=== PATIENT | male | born 1965 | race Caucasian/White ===

== ENCOUNTER 2023-01-03 18:16 | Emergency (ER) | payer BC | END 2023-01-03 18:45 | disposition home or self-care (01) | LOC: KA.ED 18:16 | DX: K62.5 Hemorrhage of anus and rectum (principal) | CPT/HCPCS: 12001; 99283 ==

== ENCOUNTER 2023-11-01 19:33 | Inpatient (IN) | payer BC ==
[2023-11-01] MEDS: Sodium Chloride 0.9% 10 ML Syringe FLUSH PRN (20:24)
[2023-11-01] MEDS: Lactated Ringers 1,000 ML IV ONE ×2 (20:28→21:44)
[2023-11-01 20:31] LABS: BASOPHILS ABSOLUTE AUTO 0.01 10^3/uL (0.00-0.10); BASOPHILS PERCENT AUTO 0.1 % (0.0-1.0); HEMATOCRIT 44.7 % (40.0-52.0); HEMOGLOBIN 15.1 g/dL (13.0-17.0); IMMATURE GRAN ABSOLUTE AUTO 0.03 10^3/uL (0.00-0.50); IMMATURE GRAN PERCENT AUTO 0.4 % (0.0-5.0); LYMPHOCYTES ABSOLUTE AUTO 0.71 10^3/uL (1.00-4.00); LYMPHOCYTES PERCENT AUTO 8.8 % (20.0-40.0); MEAN CORPUSCULAR HEMOGLOBIN 29.6 pg (27.0-31.0); MEAN CORPUSCULAR HGB CONC 33.8 g/dL (32.0-36.0); MEAN CORPUSCULAR VOLUME 87.6 fL (82.0-92.0); MEAN PLATELET VOLUME 10.7 fL (7.4-10.4); MONOCYTES PERCENT AUTO 7.5 % (2.0-8.0); NEUTROPHILS ABSOLUTE AUTO 6.69 10^3/uL (2.50-7.00); NEUTROPHILS PERCENT AUTO 83.2 % (50.0-70.0); PLATELET COUNT,PLT 216 10^3/uL (150-400); RED CELL DISTRIBUTION WIDTH 12.2 % (11.5-14.5); WHITE BLOOD CELL COUNT,WBC 8.04 10^3/uL (5.00-10.00)
[2023-11-01] MEDS: Ondansetron 4 MG/2 ML SDV IVPUSH ONE (20:32)
[2023-11-01] MEDS: Acetaminophen 500 MG Tab PO ONE (20:45)
[2023-11-01 20:48] LABS: ALANINE AMINOTRANSFERASE,ALT 34 U/L (14-63); ALBUMIN 4.05 g/dL (3.40-5.00); ALKALINE PHOSPHATASE 50 U/L (46-116); ANION GAP 16.9 mmol/L (5-15); ASPARTATE AMNIOTRANSFERASE,AST 22 U/L (15-37); BILIRUBIN TOTAL 0.8 mg/dL (0.2-1.0); BLOOD UREA NITROGEN,BUN 23 mg/dL (7-18); CHLORIDE,CL 97 mmol/L (98-107); CREATININE 1.47 mg/dL (0.51-1.17); ESTIMATED GFR 56 mL/min (>=60); GLUCOSE RANDOM 134 mg/dL (70-140); POTASSIUM,K 3.9 mmol/L (3.5-5.1); PROTEIN TOTAL,TP 7.5 g/dL (6.4-8.2); SODIUM,NA 136 mmol/L (136-145)
[2023-11-01] MEDS: methylPREDNISolone Sodium Succinate 125 MG/2 ML SDV IVPUSH ONE (20:51)
[2023-11-01 20:59] LABS: CORONAVIRUS COVID-19 NAA NEGATIVE (NEGATIVE); INFLUENZA A NAA POSITIVE (NEGATIVE); INFLUENZA B NAA NEGATIVE (NEGATIVE); RESPIRATORY SYNCYTIAL VIR NAA NEGATIVE (NEGATIVE)
[2023-11-01] MEDS: Cetirizine 10 MG Tab PO ONE (20:59)
[2023-11-01] MEDS: Famotidine 20 MG/2 ML SDV IVPUSH ONE (21:02)
[2023-11-01] MEDS: Sodium Chloride 0.9% 100 ML IV SCH (21:46)
[2023-11-01] MEDS: Iopamidol 755 Mg/ML 100 ML Bottle IV ONE (21:46)
[2023-11-01] MEDS: Oseltamivir 75 MG Cap PO ONE (22:09)
[2023-11-01] MEDS: Acetaminophen 325 MG Tab PO ONE (23:15)
[2023-11-01] MEDS ORDERED: Temazepam 15 MG Cap PO PRN (23:21)
[2023-11-01] MEDS ORDERED: Magnesium Hydroxide 400 MG/5 ML Susp 30 ML Cup PO PRN (23:21)
[2023-11-01] MEDS: Albuterol/Ipratropium 3.0-0.5 MG/3 ML Neb Soln NEB PRN (23:59)
[2023-11-02] MEDS ORDERED: Ondansetron 4 MG/2 ML SDV IV PRN
[2023-11-02] MEDS: Sodium Chloride 0.9% 1,000 ML IV SCH (00:03)
[2023-11-02] MEDS: Pantoprazole 40 MG in Sodium Chloride 0.9% 100 ML IV ONE (00:04)
[2023-11-02 07:12] LABS: HEMATOCRIT 41.6 % (40.0-52.0); MEAN CORPUSCULAR HGB CONC 33.7 g/dL (32.0-36.0); MEAN CORPUSCULAR VOLUME 89.3 fL (82.0-92.0); MEAN PLATELET VOLUME 10.6 fL (7.4-10.4); PLATELET COUNT,PLT 181 10^3/uL (150-400); RED BLOOD CELL COUNT 4.66 10^6/uL (4.50-6.00); RED CELL DISTRIBUTION WIDTH 12.4 % (11.5-14.5); WHITE BLOOD CELL COUNT,WBC 7.31 10^3/uL (5.00-10.00)
[2023-11-02 07:33] LABS: ANION GAP 13.7 mmol/L (5-15); CALCIUM 8.5 mg/dL (8.7-10.3); CARBON DIOXIDE,CO2 25.1 mmol/L (21.0-32.0); CREATININE 1.13 mg/dL (0.51-1.17); EST CRCL DRUG DOSING (CG) 80.12 mL/min; POTASSIUM,K 3.8 mmol/L (3.5-5.1)
[2023-11-02] MEDS: predniSONE 20 MG Tab PO SCH (08:24)
[2023-11-02] MEDS: Oseltamivir 75 MG Cap PO SCH (08:24)
[2023-11-02] MEDS: Acetaminophen 325 MG Tab PO PRN (10:28)
[2023-11-02] MEDS: diphenhydrAMINE 25 MG Cap PO PRN (12:10)
[2023-11-02] MEDS: guaiFENesin 600 MG Tab.ER PO PRN (12:10)
[2023-11-02] MEDS: Aluminum Hydroxide/Magnesium Hydroxide/Simethicone Susp 30 ML Cup PO PRN (12:25)
[2023-11-02] MEDS: Alum Hydrox/Mag Hydrox/Simeth 30 ML, Lidocaine 2% 15 ML PO ONE ×2 (15:26)
[2023-11-02] MEDS: Oseltamivir 75 MG Cap PO ONE (16:59)
[2023-11-02] MEDS: Pantoprazole 40 MG Tab.CR PO ONE (17:00)
[2023-11-02] MEDS: MAGNESIUM HYDROXIDE PO ONE ×2 (17:01)
[2023-11-02] MEDS: LIDOCAINE PO ONE ×2 (17:01)
[2023-11-02] MEDS: SIMETHICONE PO ONE ×2 (17:01)
[2023-11-02] MEDS: ALUMINUM HYDROXIDE PO ONE ×2 (17:01)
[2023-11-02] MEDS: Oseltamivir 6 MG/ML Susp 60 ML Bot PO ONE (17:04)
[2023-11-02] MEDS ORDERED: Pantoprazole 40 MG Tab.CR PO SCH (17:30)
[2023-11-02] MEDS: Lidocaine 2% Viscous Solution 15 ML UD ONE (17:41)
== END 2023-11-02 17:18 | disposition home or self-care (01) | DRG 243 ==
LOC: KA.ED 19:33 → KA.MS 21:51 → UNDOADMIN 22:20 → UNDODISIN 11-02 17:18
PROVIDERS: ADMIT Nurse Practitioner Family; ATTEND Family Medicine
DX: K20.90 Esophagitis, unspecified without bleeding (principal); N17.9 Acute kidney failure, unspecified; J10.1 Influenza due to other identified influenza virus with other respiratory manifestations; E86.0 Dehydration; R79.89 Other specified abnormal findings of blood chemistry; R07.9 Chest pain, unspecified; Z98.890 Other specified postprocedural states; Z11.52 Encounter for screening for COVID-19
CPT/HCPCS: 0241U; 36415; 71045; 71275; 80048; 80053; 83605; 84484; 85025; 85027; 85379; 87040; 93005; 96361; 96374; 96375; 99285-25; A9270-GY; C9113; J2405; J2930; J3490; J7030; J7120; J7512; J7620-GY; Q3014; Q9967